=== PATIENT | female | born 1950 | race Caucasian/White ===

== ENCOUNTER 2019-07-03 08:00 | Day surgery (SDC) | payer MEDICARE ==
[~2019-07-03] VITALS: Ht 162.6 cm; Wt 68.5 kg
[2019-07-03] VITALS (7 sets, daily range): BP systolic 127–156; BP diastolic 73–113
[~2019-07-03 08:00] MED LIST: AMLO5TAB9 PO; ASPI-555 PO; CLON2TAB11 PO; CLOP75TA32 PO; ESCI10TA PO; ESTR42.53 VG; FAMO40TA7 PO; LEVO88TA7 PO; SODIUM CHLORIDE 0.9% 1000ML 1,000 ML IV ONE; VIT1TABL2 PO
[2019-07-03] MEDS ORDERED: PROPOFOL 10 MG/ML 20ML VIAL IV ONE (10:09)
[2019-07-03] MEDS ORDERED: IPRATROPIUM/ALBUTEROL SULFATE 3 ML SOLUTION IH ONE (10:44)
== END 2019-07-03 11:05 | disposition home or self-care (01) ==
LOC: DAH 08:00
PROVIDERS: ATTEND Internal Medicine
DX: R13.10 Dysphagia, unspecified (principal); K29.50 Unspecified chronic gastritis without bleeding; R12 Heartburn; K31.89 Other diseases of stomach and duodenum; K22.8 Other specified diseases of esophagus; K44.9 Diaphragmatic hernia without obstruction or gangrene; I10 Essential (primary) hypertension; J44.9 Chronic obstructive pulmonary disease, unspecified; M85.88 Other specified disorders of bone density and structure, other site; I25.10 Atherosclerotic heart disease of native coronary artery without angina pectoris; Z98.890 Other specified postprocedural states; Z90.710 Acquired absence of both cervix and uterus; Z79.899 Other long term (current) drug therapy; Z79.82 Long term (current) use of aspirin; Z82.49 Family history of ischemic heart disease and other diseases of the circulatory system; Z83.3 Family history of diabetes mellitus; Z82.3 Family history of stroke
CPT/HCPCS: 43239; 88305; 94640; A4215; A4221; A4222; A4223; A4606; A4620; A4663; J2704; J7030